=== PATIENT | female | born 1985 | race African-American/Black ===

== ENCOUNTER 2019-10-16 14:21 | Emergency (ER) | payer OTHER ==
[~2019-10-16] VITALS: Ht 162.6 cm; Wt 89.4 kg
[2019-10-16 14:48] VITALS: BP 171/85
[2019-10-16] MEDS: LIDOCAINE WITH 8.4% SOD BICARB 3 ML DISP.SYRIN. INJ ONE (15:23)
[2019-10-16] MEDS: DIPHTH,PERTUSS(ACELL),TET TOX 0.5 ML DISP.SYRIN. VAX IM ONE (15:24)
--- NOTE | 2019-10-16 16:51 | PHYS DOC ---
Past Medical History Past Medical History: No Pertinent History Past Surgical History: Alcohol Use: Rarely Drug Use: None Adult General Chief Complaint Chief Complaint: LACERATION/AVULSION HPI HPI Patient is a 34 year old female who presents with left index finger laceration, patient states she was cutting a bagel with a knife and accidentally cut herself. Patient is right-handed. Review of Systems Review of Systems Constitutional: Denies fever or chills [] Musculoskeletal: Denies back pain or joint pain [] Integument: Distal end of the left index finger ventral aspect with a laceration approximately 2 cm long, this no obvious tendon involvement. Full range of motion to the left index finger MIP, PIP and DIP joints. +2 left radial pulse. Adequate radius sensation to the left index finger. Sensation intact to the left index finger. Neurologic: Denies headache, focal weakness or sensory changes [] All other systems were reviewed and found to be within normal limits, except as documented in this note. Current Medications Current Medications Current Medications Medications (Trade) Dose Ordered Sig/Jason Start Time Stop Time Status Last Admin Dose Admin Diphtheria/ Tetanus/Acell Pertussis (Boostrix) 0.5 ml ONCE ONCE 10/16/19 15:30 10/16/19 15:31 DC 10/16/19 15:24 0.5 ML Lidocaine HCl (Buffered Lidocaine 1%) 3 ml 1X ONCE 10/16/19 15:30 10/16/19 15:31 DC 10/16/19 15:23 3 ML Allergies Allergies Allergies Coded Allergies Type Severity Reaction Last Updated Verified No Known Drug Allergies 07/19/14 No Physical Exam Physical Exam Constitutional: Well developed, well nourished, no acute distress, non-toxic appearance. [] HENT: Normocephalic, atraumatic, bilateral external ears normal, oropharynx moist, no oral exudates, nose normal. [] Eyes: PERRLA, EOMI, conjunctiva normal, no discharge. [] Neck: Normal range of motion, no tenderness, supple, no stridor. [] Cardiovascular:Heart rate regular rhythm, no murmur [] Lungs & Thorax: Bilateral breath sounds clear to auscultation [] Abdomen: Bowel sounds normal, soft, no tenderness, no masses, no pulsatile masses. [] Skin: Warm, dry, no erythema, no rash. [] Back: No tenderness, no CVA tenderness. [] Extremities: No tenderness, no cyanosis, no clubbing, ROM intact, no edema. [] Neurologic: Alert and oriented X 3, normal motor function, normal sensory function, no focal deficits noted. [] Psychologic: Affect normal, judgement normal, mood normal. [] Current Patient Data Vital Signs Vital Signs Date Time Temp Pulse Resp B/P (MAP) Pulse Ox O2 Delivery O2 Flow Rate FiO2 10/16/19 14:48 98.0 89 16 171/85 (113) 98 Room Air 98.0 EKG EKG [] Radiology/Procedures Radiology/Procedures Laceration/Wound Repair Wound Location: Left index finger Wound's Depth, Shape: Horizontal Wound Length (cm): 2 Wound Explored: clean Irrigated w/ Saline (ccs): 100 Betadine Prep?: y Anesthesia: 1% buffered lidocaine Volume Anesthetic (ccs): 1.5 Wound Repaired With: Dissolvable gut Suture Size/Type: 5.0/interrupted sutures Number of Sutures: 5 Progress wound was covered with nonstick dressing Course & Med Decision Making Course & Med Decision Making Pertinent Labs and Imaging studies reviewed. (See chart for details) This is a 34-year-old female patient presenting to the ED today with left index finger laceration that was closed by me as noted in procedures. Tetanus was updated. Wound care instructions and return precautions were provided. Dragon Disclaimer Dragon Disclaimer This electronic medical record was generated, in whole or in part, using a voice recognition dictation system. Departure Departure Impression: Primary Impression: Laceration of left index finger Disposition: 01 HOME, SELF-CARE Condition: STABLE Referrals: MONSTER DAVENPORT MD (PCP) Follow-up with your doctor as needed Patient Instructions: Fingertip Laceration Additional Instructions: You were seen for left index finger laceration that was closed with dissolvable stitches, please apply Neosporin to the area twice a day. Monitor the area for any signs of infection including but not limited to increased redness, warmth, yellow drainage from the area and return to the ED if they occur. Keep it clean and dry. Follow-up with your doctor in 1-2 weeks as needed. Problem Qualifiers Primary Impression: Laceration of left index finger Encounter type: initial encounter Damage to nail status: without damage Foreign body presence: unspecified Qualified Codes: S61.211A - Laceration without foreign body of left index finger without damage to nail, initial encounter LUIS VALENTINE APRN Oct 16, 2019 16:51
== END 2019-10-16 16:55 | disposition home or self-care (01) ==
LOC: ER 14:21
DX: S61.211A Laceration without foreign body of left index finger without damage to nail, initial encounter (principal); W26.0XXA Contact with knife, initial encounter; Y93.89 Activity, other specified; Y92.89 Other specified places as the place of occurrence of the external cause; Y99.8 Other external cause status
CPT/HCPCS: 12001; 90471; 90715; 99283

== ENCOUNTER 2021-10-29 05:50 | Emergency (ER) | payer OTHER ==
[~2021-10-29] VITALS: Ht 160 cm; Wt 100.9 kg
[2021-10-29 07:08] VITALS: BP 155/106
[2021-10-29] MEDS ORDERED: IBUPROFEN 400 MG TABLET. PO ONE (07:30)
[2021-10-29] MEDS ORDERED: ACETAMINOPHEN 500 MG TABLET PO ONE (07:30)
--- NOTE | 2021-10-29 08:00 | PHYS DOC ---
Past Medical History Past Medical History: No Pertinent History Past Surgical History: Smoking Status: Never Smoker Alcohol Use: Occasionally Drug Use: None Adult General Chief Complaint Chief Complaint: SORE THROAT HPI HPI The patient is a 36-year-old otherwise healthy female who presents for evalua tion of mild sore throat with onset over the last day. No other symptoms. No fevers, nausea or vomiting, upper respiratory congestion/rhinorrhea, cough, neck pain/stiffness/meningismus, ear pain, difficulty swallowing, change in voice, shortness of breath or chest pain. Vital signs are appropriate here and the patient is in no acute distress. No therapy for symptoms prior to arrival. Patient is fully vaccinated against COVID-19. Review of Systems Review of Systems A 12 point review of systems was completed and was negative except where noted in HPI above. Current Medications Current Medications Current Medications Medications (Trade) Dose Ordered Sig/Jason Start Time Stop Time Status Last Admin Dose Admin Acetaminophen (Tylenol) 1,000 mg 1X ONCE 10/29/21 07:30 10/29/21 07:31 DC Ibuprofen (Motrin) 800 mg 1X ONCE 10/29/21 07:30 10/29/21 07:31 DC Allergies Allergies Allergies Coded Allergies Type Severity Reaction Last Updated Verified No Known Drug Allergies 07/19/14 No Physical Exam Physical Exam Middle-aged female appearing nontoxic and in no acute distress. Head is normocephalic and atraumatic. Neck is supple and nontender. Patient ranges neck fully in all dimensions without discomfort or distress and there is no stiffness/rigidity/meningismus seen. Kernig's and Brudzinski's sign negative. There is very mild posterior oropharyngeal erythema bilaterally without tonsillar exudate or swelling or uvular deviation. Patient is tolerate secretions normally and speaking comfortably in a normal tone of voice. Oropharynx is moist. Lungs are clear to auscultation at all stations. There is a normal S1 and S2 without rubs or gallops and capillary refill is appropriate, less than 2 seconds globally. Abdomen is soft, nontender nondistended. Skin is warm and dry without cyanosis, clubbing or edema. Psychiatrically, the patient demonstrates appropriate mood and affect and is alert. Current Patient Data Vital Signs Vital Signs Date Time Temp Pulse Resp B/P (MAP) Pulse Ox O2 Delivery O2 Flow Rate FiO2 10/29/21 07:08 98.4 109 20 155/106 (122) 97 Room Air 98.4 Lab Values Laboratory Tests Test 10/29/21 07:35 Influenza Type A Antigen Negative (NEGATIVE) Influenza Type B Antigen Negative (NEGATIVE) SARS-CoV-2 Antigen (Rapid) Negative (NEGATIVE) Group A Streptococcus Rapid Negative (NEGATIVE) EKG EKG [] Radiology/Procedures Radiology/Procedures [] Course & Med Decision Making Course & Med Decision Making Well-appearing 36-year-old female presenting for evaluation of mild sore throat with onset yesterday. Fully vaccinated against COVID-19 but given community prevalence will swab for Covid as well as for flu and strep. Anticipate likely discharge home to follow-up closely with primary care. Patient understands and agrees. 0840: Swabs negative. Patient resting comfortably in no distress. Will discharge home to follow-up closely with primary care. Patient understands that if she feels worse instead of better or develops other new symptoms of concern that she should return to the emergency department right away for reevaluation. All questions are answered. Dragon Disclaimer Dragon Disclaimer This electronic medical record was generated, in whole or in part, using a voice recognition dictation system. Departure Departure Impression: Primary Impression: Acute viral pharyngitis Disposition: HOME / SELF CARE / HOMELESS Condition: STABLE Referrals: MONSTER DAVENPORT MD (PCP) Patient Instructions: Sore Throat Additional Instructions: Follow-up very closely with your primary care doctor in the office in the next 2 to 4 days for reevaluation of your symptoms and to discussion of next best steps in care. Drink plenty of fluids and get plenty of rest. Take 600 mg of ibuprofen (three 200mg pills) every 6 hours as needed for discomfort. You may take a 500 mg extra strength Tylenol pill every 6 hours as needed for discomfort as well. Return to the emergency department right away for worsening symptoms of any kind or with any other new symptoms of concern. BRISSA GARY MD Oct 29, 2021 08:00
[2021-10-29 08:20] LABS: INFLUENZA A PATIENT NEGATIVE (NEGATIVE); INFLUENZA B PATIENT NEGATIVE (NEGATIVE)
--- NOTE | 2021-10-31 11:52 | NUR ---
IP: Informed pt of negative covid test. pt verbalized understanding.
== END 2021-10-29 08:57 | disposition home or self-care (01) ==
LOC: ER 05:50
DX: J02.8 Acute pharyngitis due to other specified organisms (principal); B97.89 Other viral agents as the cause of diseases classified elsewhere; Z20.822 Contact with and (suspected) exposure to COVID-19
CPT/HCPCS: 87070; 87880; 99283; U0003; U0005